=== PATIENT | male | born 1950 | race Caucasian/White ===

== ENCOUNTER → 2021-09-08 14:49 | Outpatient (BNVA) | payer MEDICARE, OTHER, SELFPAY | PROVIDERS: PCP Electrodiagnostic Medicine; Visit Provider Urology | DX: N52.9 Male erectile dysfunction, unspecified (principal); N52.1 Erectile dysfunction due to diseases classified elsewhere; R79.89 Other specified abnormal findings of blood chemistry | CPT/HCPCS: 81003 ==

== ENCOUNTER → 2021-10-13 07:18 | Outpatient (BNVA) | payer MEDICARE, OTHER, SELFPAY | PROVIDERS: PCP Electrodiagnostic Medicine; Visit Provider Urology | DX: R79.89 Other specified abnormal findings of blood chemistry (principal) | CPT/HCPCS: 84403 ==

== ENCOUNTER 2022-05-28 15:14 | Emergency (ER) | payer MEDICARE, SELFPAY ==
[2022-05-28 15:39] VITALS: BP 171/94; PULSE 70; RESP 14; TEMP 36.7; O2SAT 95; BMI 34.7
--- NOTE | 2022-05-28 16:56 | ED_ITS ---
HPI - General Adult General: Chief complaint: General Medical Stated complaint: Body aches, hemorrhoids Time Seen by Provider: 05/28/22 16:56 History of Present Illness: 71-year-old male patient comes in with a hemorrhoid. Patient reports that he has had rectal discomfort for last 3 days today he noticed some red blood and some increased discomfort. Patient denies diabetes. Patient appears nontoxic. Patient appears in mild to moderate pain. Associated symptoms: Deny chest pain or dyspnea Review of Systems Const: Denies: fever(s) Card: Denies: chest pain Resp: Denies: dyspnea GI: Reports: pain on defecation and rectal pain PFS ED PFSH: Medical History (Updated 05/28/22 @ 17:05 by ANA Brown) Erectile dysfunction Low testosterone in male Family History Mother No problems noted. Father Cancer lung Social History Smoking and tobacco status: never smoked Alcohol intake: never Marital status: Physical Exam Const: COMMON NORMALS: alert HENMT: COMMON NORMALS: normocephalic HEAD & SCALP: normocephalic Neck/C-Spine: COMMON NORMALS: full ROM Resp: COMMON NORMALS: normal respiratory effort Cardio: COMMON NORMALS: regular rate and regular rhythm RATE: regular rate RHYTHM: regular rhythm GI: COMMON NORMALS: Soft to palpation and non-tender PALPATION: Yes Soft to palpation RECTAL EXAM: Yes hemorrhoids (Large 12:00 hemorrhoid) : COMMON NORMALS: Yes no CVA tenderness BLADDER/KIDNEY EXAM: Yes no CVA tenderness Back/Pelvis: COMMON NORMALS: no CVA tenderness Extremity: COMMON NORMALS: normal to inspection Neuro: SENSORIUM/ORIENTATION: Yes alert Skin: COMMON NORMALS: turgor normal GENERAL SKIN EXAM: turgor normal Course Vital Signs: Vital signs: Vital Signs Temperature 98.1 F 05/28/22 15:39 Pulse Rate 70 05/28/22 15:39 Respiratory Rate 14 05/28/22 15:39 Blood Pressure 171/94 05/28/22 15:39 Pulse Oximetry 95 05/28/22 15:39 Oxygen Delivery Me thod 05/28/22 15:39 [facility] - General Adult Medical Decision Making 71-year-old male patient comes in today with complaints of rectal pain, red blood in stool, hemorrhoid. On exam we do note a hemorrhoid at the 12 o'clock position of the rectum. It is engorged but still fluctuant. It is tender to touch. No significant surrounding redness or induration. Differential diagnosis includes but not limited to rectal fistula, hemorrhoid, blood in stool. Patient appears nontoxic. We do note a hemorrhoid on exam. We will treat with medications for pain, stool softener, and Anusol for hemorrhoidal swelling. Case management was requested to have patient follow-up with surgeon for further evaluation and treatment of hemorrhoid. Patient was agreeable to plan and recommendations. Discharge Plan Discharge Patient Disposition: Home Clinical Impression: Hemorrhoid thrombosis Condition: Stable Prescriptions: New Anusol-HC 25 mg suppository 25 mg OR TID Qty: 24 0RF hydrocodone-acetaminophen 5-325 mg tablet 1 tab PO Q8H PRN (Reason: pain (scale score 7-10)) Qty: 10 0RF ciprofloxacin HCl 500 mg tablet 500 mg PO BID Qty: 14 0RF No Action valsartan-hydrochlorothiazide 160-12.5 mg tablet 1 tab PO DAILY levothyroxine 112 mcg capsule 112 mcg PO DAILY sildenafil 100 mg tablet 100 mg PO DAILY PRN (Reason: sexual activity) Qty: 20 12RF Rx Instructions: 1 hour before intercourse on empty stomach. NO NITROGLYCERIN! Discharge Orders: Discharge ED (Routine); Ordered 05/28/22 Ordered By: Krunal Helms Referrals: Rickey Burt, [Primary Care Provider] - Discharge Diet: Usual diet Discharge Activity: Increase activity as tolerated Patient Instructions: Hemorrhoids (ED) Activity Restrictions/Additional Instructions: Use a stool softener and avoid straining with defecation. Drink plenty of water. Use the suppositories 2-3 times a day until resolution of symptoms. Use hydrocodone for severe pain. Hydrocodone may cause constipation so make sure you take a stool softener with the use of hydrocodone. Take antibiotic 1 tablet twice a day for the next 7 days. Return to the ER for fever greater than 100.4, uncontrolled pain, or new concerns. Follow-up with primary care as needed. Case management will contact you regarding a follow-up appointment with the surgeon. Coding Level of Care Code ED Nuclear Control Room Operator for Dede Piedra
--- NOTE | 2022-05-31 13:34 | DCPLANNER ---
Addendum entered by Abbi Chacko 06/17/22 08:56: Patient had a follow up appointment scheduled with general surgery - patient did attend appointment. Addendum entered by Abbi Chacko 06/01/22 08:58: Patient has an appointment scheduled for May at 11:[address] Omer at General Surgery. Clinic will call patient with appointment information. Original Note: property disposal manager had message to schedule a follow up appointment for patient with general surgery. property disposal manager sent patients information to the front office staff at general surgery. Patients information will be printed and reviewed. Clinic will call patient with appointment information.
== END 2022-05-28 17:32 | disposition home or self-care (01) ==
PROVIDERS: Emergency Provider Nurse Practitioner Family; PCP Electrodiagnostic Medicine
DX: K64.5 Perianal venous thrombosis (principal)
CPT/HCPCS: 99284

== ENCOUNTER → 2022-06-02 11:11 | Outpatient (BNVA) | payer MEDICARE, SELFPAY | PROVIDERS: PCP Electrodiagnostic Medicine; Visit Provider Surgery | DX: K64.9 Unspecified hemorrhoids (principal) | CPT/HCPCS: 99203 ==

== ENCOUNTER → 2022-10-20 10:06 | Outpatient (BNVA) | payer MEDICARE, SELFPAY | PROVIDERS: PCP Electrodiagnostic Medicine; Visit Provider Podiatrist Foot & Ankle Surgery | DX: M77.8 Other enthesopathies, not elsewhere classified (principal); M77.52 Other enthesopathy of left foot and ankle; D36.13 Benign neoplasm of peripheral nerves and autonomic nervous system of lower limb, including hip; M79.672 Pain in left foot | CPT/HCPCS: 73630; 99204 ==

== ENCOUNTER → 2022-11-24 10:09 | Outpatient (BNVA) | payer MEDICARE, SELFPAY | PROVIDERS: PCP Electrodiagnostic Medicine; Visit Provider Podiatrist Foot & Ankle Surgery | DX: M77.8 Other enthesopathies, not elsewhere classified (principal); M77.52 Other enthesopathy of left foot and ankle; D36.13 Benign neoplasm of peripheral nerves and autonomic nervous system of lower limb, including hip | CPT/HCPCS: 99213 ==

== ENCOUNTER 2023-01-08 08:07 | Emergency (ER) | payer MEDICARE, SELFPAY ==
--- NOTE | 2023-01-08 08:16 | W.ED.NAVMDI ---
HPI - Nausea/Vomiting/Diarrhea General: Chief complaint: Abdominal Pain Stated complaint: diarrhea 5xdays Time Seen by Provider: 01/08/23 08:10 Source: patient Mode of arrival: ambulatory History of Present Illness: 72 yo male presents w compalitn of diuarrhea for the last 5 days. MD elicited complaint: nausea and diarrhea Onset (ago): day(s) (5) Description of vomiting: watery Associated nausea: No Associated abdominal pain: Yes Location of pain: Suprapubic Radiation: diffuse Pain consistency: constant Severity: mild Quality: cramping Exacerbating factors: none Relieving factors: none Associated symtoms: Denies altered mental status, anxiety, bloating, change in vision, chest pain, cough, diaphoresis, decreased urine output, dizziness, dysuria, epistaxis, fatigue, fecal incontinence, fevers/chills, headache(s), anorexia, malaise, myalgias, nausea, numbness, palpitations, rash, short of breath, syncope, tenesmus, tinnitus or weakness Review of Systems Const: Denies: fever(s), chills, fatigue, malaise or diaphoresis Eyes: Denies: change in vision ENMT: Denies: tinnitus or epistaxis Card: Denies: chest pain, palpitations or syncope Resp: Denies: dyspnea, productive cough or non-productive cough GI: Reports: abdominal pain and diarrhea; Denies: nausea, vomiting, bloating or fecal incontinence : Denies: dysuria Skin/Breast: Denies: rash or pruritus Neuro: Denies: headache(s) or dizziness Psych: Denies: anxiety PFSH ED PFSH: Medical History Erectile dysfunction Low testosterone in male Family History Mother No problems noted. Father Cancer lung Social History Smoking and tobacco status: never smoked Alcohol intake: never Marital status: Physical Exam Const: COMMON NORMALS: no acute distress EXAM LIMITATIONS: no altered mental status GENERAL APPEARANCE: cooperative and comfortable ORIENTATION/CONSCIOUSNESS: Yes awake, Yes oriented to person, Yes oriented to place and Yes oriented to time HENMT: COMMON NORMALS: normocephalic, atraumatic and hearing grossly normal bilaterally HEAD & SCALP: normocephalic and atraumatic Resp: COMMON NORMALS: normal respiratory effort, No retractions, No use of accessory muscles and clear to auscultation bilaterally AUSCULTATION: clear to auscultation bilaterally Cardio: COMMON NORMALS: regular rate, regular rhythm and No murmurs present (Cardio) RATE: regular rate RHYTHM: regular rhythm GI: COMMON NORMALS: No hepatosplenomegaly present AUSCULTATION: Yes normoactive bowel sounds PALPATION: Yes Tenderness to palpation present (GI) (suprapubic), No Guarding due to palpation present (GI) and Yes No hepatosplenomegaly present Extremity: COMMON NORMALS: normal to inspection, capillary refill normal, no clubbing, cyanosis or edema, no calf tenderness and no pedal edema Neuro: SENSORIUM/ORIENTATION: Yes oriented to person, Yes oriented to place and Yes oriented to time Skin: COMMON NORMALS: no rashes or lesions noted GENERAL SKIN EXAM: no rashes or lesions noted Course Vital Signs: Vital signs: Vital Signs Temperature 97.6 F 01/08/23 08:24 Pulse Rate 63 01/08/23 08:36 Respiratory Rate 19 H 01/08/23 08:36 Blood Pressure 98/75 01/08/23 10:16 Pulse Oximetry 93 01/08/23 08:36 Oxygen Delivery Me thod 01/08/23 08:36 MDM - Nausea/Vomiting/Diarrhea Medical Decision Making Labs reviewed. Based on physical exam suspect he has diverticulitis. His white count is normal we will start on oral antibiotics Cipro and Flagyl. No evidence of UTI no evidence of nephrolithiasis. Abdomen mildly tender but not acute or surgical. Discharge home on ciprofloxacin and metronidazole liquid diet for the next 2 to 3 days and advance as tolerated follow-up primary care return to the ER if worsens or does not improve Medical Records I reviewed the patient's medical records. Lab Data I reviewed the patient's lab results. 01/08/23 08:35 01/08/23 08:35 Laboratory Results WBC 9.9 10^3/uL (4.0-10.0) 01/08/23 08:35 RBC 5.54 10^6/uL (4.1-5.3) H 01/08/23 08:35 Hgb 15.4 g/dL (11.7-16.6) 01/08/23 08:35 Hct 46.6 % (42.0-52.0) 01/08/23 08:35 MCV 84.1 fl (80-94) 01/08/23 08:35 MCH 27.8 pg (28.0-34.0) L 01/08/23 08:35 MCHC 33.0 g/dL (30.0-36.0) 01/08/23 08:35 RDW 12.7 % (12.1-15.1) 01/08/23 08:35 Plt Count 271 10^3/cmm (130-400) 01/08/23 08:35 MPV 8.1 fL (7.4-10.4) 01/08/23 08:35 Neut % (Auto) 49.0 % 01/08/23 08:35 Lymph % (Auto) 35.3 % 01/08/23 08:35 [place] % (Auto) 9.8 % 01/08/23 08:35 Eos % (Auto) 5.2 % 01/08/23 08:35 Baso % (Auto) 0.4 % 01/08/23 08:35 Neut # (Auto) 4.86 10^3/uL (1.8-7.7) 01/08/23 08:35 Lymph # (Auto) 3.5 10^3/uL (0.8-4.8) 01/08/23 08:35 [place] # (Auto) 1.0 10^3/uL (0.2-0.9) H 01/08/23 08:35 Eos # (Auto) 0.5 10^3/uL (0.0-0.8) 01/08/23 08:35 Baso # (Auto) 0.0 10^3/uL (0.0-0.1) 01/08/23 08:35 Nucleated RBC % (auto) 0 % 01/08/23 08:35 Nucleated RBCs # 0.0 /100WBC 01/08/23 08:35 Sodium 132 mmol/L (136-145) L 01/08/23 08:35 Potassium 3.5 mmol/L (3.5-5.1) 01/08/23 08:35 Chloride 95 mmol/L (98-107) L 01/08/23 08:35 Carbon Dioxide 25 mmol/L (22-29) 01/08/23 08:35 Anion Gap 15.5 (5-19) 01/08/23 08:35 BUN 22 mg/dL (8-23) 01/08/23 08:35 Creatinine 0.9 mg/dL (0.7-1.2) 01/08/23 08:35 GFR Calculation Not Reportable 01/08/23 08:35 Glucose 120 mg/dL (65-115) H 01/08/23 08:35 Calculated Osmolality 279 mOsm/kg (285-295) L 01/08/23 08:35 Calcium 8.8 mg/dL (8.5-10.5) 01/08/23 08:35 Total Bilirubin 0.9 mg/dL (0.15-1.2) 01/08/23 08:35 AST 21 U/L (0-40) 01/08/23 08:35 ALT 36 U/L (0-41) 01/08/23 08:35 Alkaline Phosphatase 82 U/L (40-130) 01/08/23 08:35 Total Protein 7.3 g/dL (6.6-8.7) 01/08/23 08:35 Albumin 3.9 g/dL (3.5-5.2) 01/08/23 08:35 Globulin 3.4 g/dL (1.3-4.6) 01/08/23 08:35 Lipase 16 U/L (13-60) 01/08/23 08:35 Urine Color Yellow (Yellow) 01/08/23 10:00 Urine Appearance Clear (CLEAR) 01/08/23 10:00 Urine pH 6 (5-7) 01/08/23 10:00 Ur Specific [place] 1.020 (1.005-1.030) 01/08/23 10:00 Urine Protein Neg (Negative) 01/08/23 10:00 Urine Glucose (UA) Norm (Normal) 01/08/23 10:00 Urine Ketones Negative (Negative) 01/08/23 10:00 Urine Blood Neg (Negative) 01/08/23 10:00 Urine Nitrate Negative (Negative) 01/08/23 10:00 Urine Bilirubin Neg (Negative) 01/08/23 10:00 Urine Urobilinogen Norm mg/dL (Negative) 01/08/23 10:00 Ur Leukocyte Esterase Negative (Negative) 01/08/23 10:00 Discharge Plan Discharge Patient Disposition: Home Clinical Impression: Diverticulitis Condition: Stable Prescriptions: New Cipro 500 mg tablet 500 mg PO BID Qty: 14 0RF metronidazole 500 mg tablet 500 mg PO BID 7 Days Qty: 14 0RF promethazine 25 mg tablet 25 mg PO Q6H PRN (Reason: nausea and vomiting) Qty: 20 0RF Discontinued methylprednisolone [Medrol (Arnold)] 4 mg tablets,dose pack See Rx Instructions PO PER PKG DIR Qty: 21 0RF Rx Instructions: PO PER PKG DIR hydrocodone-acetaminophen 5-325 mg tablet 1 tab PO Q8H PRN (Reason: pain (scale score 7-10)) Qty: 10 0RF ciprofloxacin HCl 500 mg tablet 500 mg PO BID Qty: 14 0RF No Action valsartan-hydrochlorothiazide 160-12.5 mg tablet 1 tab PO DAILY levothyroxine 112 mcg capsule 112 mcg PO DAILY sildenafil 100 mg tablet 100 mg PO DAILY PRN (Reason: sexual activity) Qty: 20 12RF Rx Instructions: 1 hour before intercourse on empty stomach. NO NITROGLYCERIN! Anusol-HC 25 mg suppository 25 mg AK TID Qty: 24 0RF Discharge Orders: Discharge ED (Routine); Ordered 01/08/23 Ordered By: David Munson Referrals: Rickey Burt DO [Primary Care Provider] - Discharge Diet: Full LIquid Discharge Activity: Increase activity as tolerated Patient Instructions: Diverticulitis (ED), Diverticulitis Diet (ED), Opioid Safety, Pain Management Activity Restrictions/Additional Instructions: You are seen today for abdominal pain. Your white count is normal your exam and history are indicative of diverticulitis. We will start you on antibiotics for diverticulitis. Liquid diet for the next 3 days. If you have any worsening symptoms or blood return to the emergency room. Coding Level of Care Code ED Bottom Pounder Cement Shoes for Dede Piedra
[2023-01-08 08:24] VITALS: BP 101/68; PULSE 72; RESP 14; TEMP 36.4; O2SAT 96; BMI 34.7
[2023-01-08 08:36] VITALS: BP 109/68; PULSE 63; RESP 19; O2SAT 93
[2023-01-08] MEDS: sodium chloride 0.9% 1,000 ML 999 ML IV (08:37)
[2023-01-08 08:46] LABS: Basophils % 0.4 %; Eosinophils # 0.5 10^3/uL (0.0-0.8); Eosinophils % 5.2 %; Hematocrit 46.6 % (42.0-52.0); Hemoglobin 15.4 g/dL (11.7-16.6); Lymphocytes # 3.5 10^3/uL (0.8-4.8); Lymphocytes % 35.3 %; Mean Corpuscular Hemoglobin 27.8 pg (28.0-34.0); Mean Corpuscular Volume 84.1 fl (80-94); Mean Platelet Volume 8.1 fL (7.4-10.4); Monocytes % 9.8 %; Neutrophils # 4.86 10^3/uL (1.8-7.7); Nucleated Red Blood Cells % 0 %; Platelet Count 271 10^3/cmm (130-400); Red Blood Count 5.54 10^6/uL (4.1-5.3); Red Cell Distribution Width 12.7 % (12.1-15.1); White Blood Count 9.9 10^3/uL (4.0-10.0)
[2023-01-08 09:01] LABS: Alanine Aminotransferase 36 U/L (0-41); Albumin Level 3.9 g/dL (3.5-5.2); Alkaline Phosphatase 82 U/L (40-130); Anion Gap 15.5 (5-19); Aspartate Amino Transferase 21 U/L (0-40); Blood Urea Nitrogen 22 mg/dL (8-23); Calcium 8.8 mg/dL (8.5-10.5); Carbon Dioxide 25 mmol/L (22-29); Chloride 95 mmol/L (98-107); Globulin 3.4 g/dL (1.3-4.6); Glucose 120 mg/dL (65-115); Lipase 16 U/L (13-60); Osmolality Calculated 279 mOsm/kg (285-295); Potassium 3.5 mmol/L (3.5-5.1); Sodium 132 mmol/L (136-145); Total Bilirubin 0.9 mg/dL (0.15-1.2); Total Protein 7.3 g/dL (6.6-8.7)
[2023-01-08 10:16] VITALS: BP 98/75
[2023-01-08 10:23] LABS: Add Urine Microscopic? NO; Charge for UA Resulting for Rev
[2023-01-08 10:42] LABS: Bilirubin Urine Neg (Negative); Blood Urine Neg (Negative); Glucose Urine UA Norm (Normal); Ketones Urine Negative (Negative); Leukocyte Esterase Urine Negative (Negative); Nitrate Urine Negative (Negative); Protein Urine Neg (Negative); Urine Appearance Clear (CLEAR); Urine Color Yellow (Yellow); Urobilinogen Urine Norm (Negative); pH Urine 6 (5-7)
== END 2023-01-08 11:15 | disposition home or self-care (01) ==
PROVIDERS: Emergency Provider Family Medicine; PCP Electrodiagnostic Medicine
DX: K57.92 Diverticulitis of intestine, part unspecified, without perforation or abscess without bleeding (principal)
CPT/HCPCS: 80053; 81003; 83690; 85025; 99284; J7030

== ENCOUNTER → 2023-04-28 15:58 | Outpatient (BNVA) | payer MEDICARE, SELFPAY | PROVIDERS: PCP Electrodiagnostic Medicine; Visit Provider Internal Medicine Pulmonary Disease | DX: R07.9 Chest pain, unspecified (principal) | CPT/HCPCS: 71046; 99204 ==

== ENCOUNTER 2023-05-12 13:07 | Outpatient (CLI) | payer MEDICARE, SELFPAY ==
--- NOTE | 2023-05-12 13:30 | CT_ITS ---
WS: [id number] CT chest wo con [id number] HISTORY: dyspnea TECHNIQUE: Axial imaging performed through the thorax. Coronal and sagittal reformats are submitted. All CT scans at [facility] use at least one of these dose optimization techniques: automated exposure control; mA and/or kV adjustment per patient size (includes targeted exams where dose is mat ched to clinical indication); or iterative reconstruction. CONTRAST: None DLP: 470.75 mGy.cm COMPARISON: Chest radiograph 04/28/2023 Lungs and central airway: Normal. Pleura: Normal. No pleural effusion. Heart and pericardium: Normal size heart. No pericardial effusion. Mild coronary atherosclerosis. Mediastinum and bailey: No adenopathy. Vessels: Very minimal atherosclerosis aorta. Normal size pulmonary artery and aorta. Mild scattered c oronary artery calcifications. Chest wall and lower neck: No soft tissue masses. Upper abdomen: Normal size liver. Cholelithiasis without acute cholecystitis. Bilateral renal low-att enuation masses are incompletely visualized. The largest involving the right kidney measures 6.0 x 6. 6 cm. Hounsfield units are low within the visualized kidneys suggesting cystic disease. Osseous structures: Negative. IMPRESSION: 1. No pulmonary mass or pneumonia. 2. Mild atherosclerosis coronary arteries and thoracic aorta. 3. Cholelithiasis without acute cholecystitis.
== END 2023-05-12 13:08 | disposition home or self-care (01) ==
PROVIDERS: PCP Electrodiagnostic Medicine; Visit Provider Internal Medicine Pulmonary Disease
DX: R06.00 Dyspnea, unspecified (principal); I25.10 Atherosclerotic heart disease of native coronary artery without angina pectoris; I70.0 Atherosclerosis of aorta; K80.20 Calculus of gallbladder without cholecystitis without obstruction
CPT/HCPCS: 71250

== ENCOUNTER 2023-05-19 13:15 | Outpatient (CLI) | payer MEDICARE, SELFPAY ==
[2023-05-19 13:32] VITALS: PULSE 65; RESP 18; O2SAT 94
[2023-05-19] MEDS: albuterol 2.5 mg/3 mL Neb INHALATION (13:32)
[2023-05-19 13:37] VITALS: PULSE 70
== END 2023-05-19 13:16 | disposition home or self-care (01) ==
LOC: RT 13:15
PROVIDERS: PCP Electrodiagnostic Medicine; Visit Provider Internal Medicine Pulmonary Disease
DX: R06.09 Other forms of dyspnea (principal)
CPT/HCPCS: 94060; 94618; 94726; 94729

== ENCOUNTER → 2023-06-29 15:00 | Outpatient (BNVA) | payer MEDICARE, SELFPAY | PROVIDERS: PCP Electrodiagnostic Medicine; Visit Provider Internal Medicine Pulmonary Disease | DX: J82.83 Eosinophilic asthma (principal); N28.1 Cyst of kidney, acquired; K80.20 Calculus of gallbladder without cholecystitis without obstruction; Z57.5 Occupational exposure to toxic agents in other industries | CPT/HCPCS: 99214 ==

== ENCOUNTER 2023-07-29 08:45 | Outpatient (CLI) | payer MEDICARE, SELFPAY ==
--- NOTE | 2023-07-29 | ECG_ITS ---
[facility] Test Date: 2023-07-29 Pat Name: Malachi Larry Department: Room: Gender: Male Owner/Operator: : 1950 Requested By: Rickey Jarquin Order Number: [id number] Robertson MD: Isela Ro M.D. Interpretive Statements NAME OF STUDY: EXERCISE SESTAMIBI STRESS TEST INDICATION: ASHD Baseline blood pressure of 120/76 mm Hg, heart rate 54 beats per minute. EKG showed sinus rhythm, possible old inferior CO. Incomplete RBBB. Poor anterior R wave progression. ??? The patient exercised for 7 min 30 seconds on a [standard Lenard protocol]. Patient attained a maximum heart rate of 131 beats per minute( 88 % of the maximum predicted heart rate) with a blood pressure at the peak exercise of 180/87 mm Hg. The EKG at the peak exercise revealed no significant ST-T wave changes. Patient did [not have any chest pain or any significant arrhythmis with the exercise]??? During the recovery phase, there were no new changes. ??? Blood pressure at the end of the recovery phase was 170/89 mm Hg with a heart rate of 77 beats per minute. ??? CONCLUSION: 1. Normal EKG response to treadmill exercise. 2. No exercise-induced chest pain or cardiac arrhythmia. 3. Good exercise tolerance, attained a maximum of 10.2 METs. 4. Baseline normal blood pressure with normal response to exercise. 5. Perfusion scan will be documented separately. Electronically Signed On 08-08-2023 19:14:28 EDITOR HOUSE ORGAN by Isela Ro M.D. [id number]
[2023-07-29 09:31] VITALS: BMI 33.7
--- NOTE | 2023-07-29 09:31 | NMCV_ITS ---
NM herrera perf SPECT r/s* [id number] Malachi Larry Age: 73 Gender: M : 1950 Exam Date: 07/29/2023 09:54 Ordering Phys: Rickey Burt DO Technologist: FIFI Booth Exam Location: [facility] [address] Indications: ATHEROSCLEROTIC HEART DISEASE STRESS TEST Please see separate stress test report in Ephiphany for full findings IMAGE PROTOCOL Rest/Stress 1 Exercise Day Radiopharmaceutical Dose (mCi) Administration Site Administered by Rest: Tc-99m 10.9 IV FIFI Booth Sestamibi Stress:Tc-99m 32.6 IV FIFI Lee Sestamibi Rest: 29-Jul-2023 60 Discovery 630 Stress: 29-Jul-2023 15 Discovery 630 Radiopharmaceutical was injected at 86 % maximum heart rate. Images obtained in supine and prone position. SPECT RESULTS Technical Quality: Excellent Raw Data Analysis: Normal Image Corrections: No attenuation or motion correction applied Summed Stress Score: 10 Summed Rest Score: 5 Summed Difference Score: 5 PERFUSION FINDINGS Small sized perfusion abnormality of mid to apical inferior and mid infero- septal barry with reversibility noted in apical inferior, apical septal and apical barry on supine stress images. On prone images, there is improved tracer uptake in basal to mid inferior barry. FUNCTIONAL RESULTS (calculated via Gated SPECT) Stress Image LV EF (%): 69 Stress EDV (mL):123 TID: 0.9 Stress ESV (mL):38 FUNCTIONAL FINDINGS: The left ventricle is normal in size. Transient Ischemia Dilatation of 0.9. The left ventricular ejection fraction is normal with a value of 69%. There is normal left ventricular wall thickening. IMPRESSIONS 1. Small sized perfusion abnormality of mid to apical inferior and mid infero- septal barry with reversibility noted in apical inferior, apical septal and apical barry. 2. This may represent old myocardial infarction in right coronary artery with minimal jurgen-infarct ischemia.Attenuation artifact cannot be ruled out, given improved tracer uptake in prone images. 3. Overall left ventricular systolic function is normal without regional wall motion abnormalities,LVEF=69%. 4. EKG portion of the study will be reported separately. Isela Ro MD (Electronically Signed) Final Date: 31 July 2023 11:48 S
[2023-07-29 10:51] VITALS: BP 170/89; PULSE 87
== END 2023-07-29 08:46 | disposition home or self-care (01) ==
PROVIDERS: PCP Electrodiagnostic Medicine; Visit Provider Electrodiagnostic Medicine
DX: I25.10 Atherosclerotic heart disease of native coronary artery without angina pectoris (principal); R94.39 Abnormal result of other cardiovascular function study
CPT/HCPCS: 36415; 78452; 93017; 96374; A9500

== ENCOUNTER → 2023-09-08 11:12 | Outpatient (BNVA) | payer MEDICARE, SELFPAY | PROVIDERS: PCP Electrodiagnostic Medicine; Referring Provider Electrodiagnostic Medicine; Visit Provider Internal Medicine Cardiovascular Disease | DX: R94.39 Abnormal result of other cardiovascular function study (principal); I10 Essential (primary) hypertension; E78.5 Hyperlipidemia, unspecified; E03.8 Other specified hypothyroidism | CPT/HCPCS: 99204 ==

== ENCOUNTER 2023-09-23 15:04 | Outpatient (CLI) | payer MEDICARE, SELFPAY ==
--- NOTE | 2023-09-23 15:15 | USCV_ITS ---
Malachi Larry Age: 73 Gender: M : 1950 Exam Date: 09/23/2023 15:25 Ordering Phys: Larry Crowley MD ([email or web address]) Technologist: CT Exam Location: [facility] Indication: cva BP: 136 / 78 HR: 60 Rhythm: Sinus Technical Quality: Adequate MEASUREMENTS (Male / Female) Normal Values 2D ECHO LVOT Diameter 2.1 cm LV Ejection Fraction MOD 2C 51.7 % LV Ejection Fraction 2C AL 52.4 % LA Diameter 5.1 cm Aorta at Sinotubular Diameter 2.6 cm IVC Diameter 1.8 cm M-MODE Aortic Annulus Diameter 3.6 cm LA Ao Ratio MM 1.5 MV E Point Septal Separation 0.8 cm DOPPLER AV Peak Velocity 147.0 cm/s LVOT Peak Velocity 102.0 cm/s AV Area Cont Eq vti 2.7 cm squared AV Area Cont Eq pk 2.4 cm squared MV E' Velocity 8.0 cm/s TR Peak Velocity 247.5 cm/s TR Peak Gradient 24.5 mmHg TV Peak E Velocity 79.0 cm/s Right Atrial Pressure 3.0 mmHg Pulmonary Artery Systolic Pressu 27.5 mmHg PV Peak Velocity 113.0 cm/s FINDINGS Left Ventricle Normal left ventricular size and systolic function, EF 55 % (visual). No regional wall motion abnormalities. Technically difficult study because of the poor ultrasonic window Right Ventricle The right ventricle is normal in size and function. Right Atrium The right atrium is normal in size. Left Atrium Mildly increased left atrial size. Mitral Valve No gross abnormalities noted Aortic Valve No gross abnormalities noted . Tricuspid Valve Mild tricuspid valve regurgitation. Pulmonic Valve Pulmonic valve not well visualized. Pericardium Normal pericardium without effusion. Aorta Normal ascending aorta dimension. IVC Normal inferior vena cava. CONCLUSIONS Normal left ventricular size and systolic function, EF 55 % (visual). No regional wall motion abnormalities. Technically difficult study because of the poor ultrasonic window. Mildly increased left atrial size. Mild tricuspid valve regurgitation. There is no pericardial effusion. There are no intracardiac masses. No similar previous studies are available for comparison Dr Larry Crowley MD [facility] (Electronically Signed) Final Date: 25 September 2023 23:48 S
== END 2023-09-23 15:05 | disposition home or self-care (01) ==
LOC: RAD 15:04
PROVIDERS: PCP Electrodiagnostic Medicine; Visit Provider Internal Medicine Cardiovascular Disease
DX: I07.1 Rheumatic tricuspid insufficiency (principal); R06.09 Other forms of dyspnea
CPT/HCPCS: 93306

== ENCOUNTER 2023-10-05 11:59 | Inpatient (IN) | payer MEDICARE, SELFPAY ==
[2023-10-05] VITALS (19 sets, daily range): BP systolic 119–173; BP diastolic 82–110; PULSE 55–67; RESP 12–21; TEMP 36.2–36.8; O2SAT 93–98; BMI 34.0; BMI 32.3
--- NOTE | 2023-10-05 12:06 | ECG_ITS ---
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 Measurements Intervals [place] Rate: 63 P: 59 AR: 153 QRS: -80 QRSD: 126 T: 113 QT: 391 QTc: 401 Interpretive Statements SINUS RHYTHM RIGHT BUNDLE BRANCH BLOCK [120+ ms QRS DURATION, UPRIGHT V1, 40+ ms S IN I/aVL/V4/V5/V6] LEFT ANTERIOR FASCICULAR BLOCK [QRS AXIS <= -45, QR IN I, RS IN II] MODERATE T-WAVE ABNORMALITY, CONSIDER LATERAL ISCHEMIA [-0.1+ mV T-WAVE IN I/aVL/V5/V6] No previous ECG available for comparison Electronically Signed On 10-05-2023 12:49:46 BIOLOGICAL TECHNICAL OFFICER by Rocael Hall M.D. [id number]
--- NOTE | 2023-10-05 14:11 | ECG_ITS ---
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 Measurements Intervals [place] Rate: 67 P: 82 SD: 154 QRS: -74 QRSD: 120 T: 125 QT: 436 QTc: 461 Interpretive Statements SINUS RHYTHM WITH OCCASIONAL VENTRICULAR PREMATURE COMPLEXES WITH OCCASIONAL SUPRAVENTRICULAR PREMATURE COMPLEXES LEFT ANTERIOR FASCICULAR BLOCK [QRS AXIS <= -45, QR IN I, RS IN II] ST DEVIATION AND MODERATE T-WAVE ABNORMALITY, CONSIDER ANTEROLATERAL ISCHEMIA [-0.1+ mV T-WAVE IN V3-V6] Compared to ECG 10/05/2023 12:06:35 Ventricular premature complex(es) now present Right bundle-branch block no longer present T-wave abnormality still present Possible ischemia still present Electronically Signed On 10-05-2023 19:01:12 NEUROLOGICAL SURGEON by Rocael Hall M.D. [id number]
--- NOTE | 2023-10-05 14:11 | XR_ITS ---
WS: [id number] Portable AP upright chest, 10/05/2023 Clinical Data: chest pain Comparison: Two-view chest, 04/28/2023 Findings: No nodules, masses or effusions are seen. The heart is normal. The pulmonary vascularity is not increased. No pneumonia or pneumothorax is seen. The aortic arch and descending thoracic aorta s how minimal tortuosity. Impression: Atherosclerosis.
[2023-10-05 14:55] LABS: Basophils % 0.4 %; Eosinophils # 0.2 10^3/uL (0.0-0.8); Eosinophils % 1.8 %; Hematocrit 49.3 % (37-53); Lymphocytes # 2.4 10^3/uL (0.8-4.8); Lymphocytes % 25.7 %; Mean Corpuscular HGB Conc 33.1 g/dL (30-55); Mean Corpuscular Hemoglobin 28.2 pg (27-33); Mean Corpuscular Volume 85.4 fl (82-101); Mean Platelet Volume 8.2 fL (7.4-10.4); Monocytes # 0.8 10^3/uL (0.2-0.9); Monocytes % 8.2 %; Neutrophils # 5.94 10^3/uL (1.8-7.7); Neutrophils % 63.5 %; Nucleated Red Blood Cells % 0 %; Platelet Count 275 10^3/cmm (157-399); Red Blood Count 5.77 10^6/uL (3.85-5.65); Red Cell Distribution Width 13.2 % (12.1-15.1); White Blood Count 9.37 10^3/uL (3.29-11.43)
--- NOTE | 2023-10-05 15:09 | W.ED.CHESTPA ---
HPI - Chest Pain General: Chief Complaint: Chest Pain Stated Complaint: CP, sob Time Seen by Provider: 10/05/23 15:00 History of Present Illness: 73-year-old man with a history of hypertension and hyperlipidemia who presents to the emergency room with chest pain. Pain started about 4 hours ago and was improving. He says it is now starting to come back. He describes a pressure in his central chest. He had pain radiating into his jaw on both sides in his neck on both sides. He has occasional cough. No shortness of breath. No nausea or vomiting. No abdominal pain. No lower extremity swelling. Review of Systems Narrative: Constitutional symptoms: Negative except as documented in HPI. Skin symptoms: Negative except as documented in HPI. Eye symptoms: Negative except as documented in HPI. ENMT symptoms: Negative except as documented in HPI. Respiratory symptoms: Negative except as documented in HPI. Cardiovascular symptoms: Negative except as documented in HPI. Gastrointestinal symptoms: Negative except as documented in HPI. Genitourinary symptoms: Negative except as documented in HPI. Musculoskeletal symptoms: Negative except as documented in HPI. Neurologic symptoms: Negative except as documented in HPI. Psychiatric symptoms: Negative except as documented in HPI. Endocrine symptoms: Negative except as documented in HPI. PFSH ED PFSH: Medical History HTN (hypertension) Hypothyroidism Inguinal hernia History of colon polyps Erectile dysfunction Low testosterone in male Surgical History H/O elbow surgery Hx of arthroscopy of left knee H/O discectomy History of colonoscopy with polypectomy Family History Mother No problems noted. Father Cancer lung Social History Smoking and tobacco/nicotine status: never used tobacco/nicotine Alcohol intake: never Marital status: Physical Exam Narrative: EXAM NARRATIVE: General: Alert, no acute distress. Skin: Warm, dry. Head: Normocephalic, atraumatic. Neck: Supple, trachea midline. Eye: Extraocular movements are intact. Ears, nose, mouth and throat: mucosa moist. Cardiovascular: Regular, Normal peripheral perfusion. Respiratory: Lungs are clear to auscultation, respirations are non-labored, breath sounds are equal, Symmetrical chest wall expansion. Gastrointestinal: Soft, Nontender, Non distended, Normal bowel sounds. Musculoskeletal: Normal ROM, no deformity. Neurological: Alert and oriented to person, place, time, and situation, No focal neurological deficit observed. Psychiatric: Cooperative, appropriate mood & affect. Course Vital Signs: Vital signs: Vital Signs Temperature 98.2 F 10/05/23 12:04 Pulse Rate 62 10/05/23 16:00 Respiratory Rate 12 10/05/23 16:00 Blood Pressure 128/82 10/05/23 16:00 Pulse Oximetry 96 10/05/23 16:00 Oxygen Delivery Me thod Room Air 10/05/23 16:00 MDM - Chest Pain Medical Decision Making Concern for acute coronary syndrome. Pneumonia. Heart failure. Noncardiac chest pain. EKG, troponin serially. CBC. BMP. Chest x-ray were ordered. Lab Data 10/05/23 14:25 10/05/23 14:25 Laboratory Results WBC 9.37 10^3/uL (3.29-11.43) 10/05/23 14:25 RBC 5.77 10^6/uL (3.85-5.65) H 10/05/23 14:25 Hgb 16.30 g/dL (11.27-16.99) 10/05/23 14:25 Hct 49.3 % (37-53) 10/05/23 14:25 MCV 85.4 fl (82-101) 10/05/23 14:25 MCH 28.2 pg (27-33) 10/05/23 14:25 MCHC 33.1 g/dL (30-55) 10/05/23 14:25 RDW 13.2 % (12.1-15.1) 10/05/23 14:25 Plt Count 275 10^3/cmm (157-399) 10/05/23 14:25 MPV 8.2 fL (7.4-10.4) 10/05/23 14:25 Neut % (Auto) 63.5 % 10/05/23 14:25 Lymph % (Auto) 25.7 % 10/05/23 14:25 [place] % (Auto) 8.2 % 10/05/23 14:25 Eos % (Auto) 1.8 % 10/05/23 14:25 Baso % (Auto) 0.4 % 10/05/23 14:25 Neut # (Auto) 5.94 10^3/uL (1.8-7.7) 10/05/23 14:25 Lymph # (Auto) 2.4 10^3/uL (0.8-4.8) 10/05/23 14:25 [place] # (Auto) 0.8 10^3/uL (0.2-0.9) 10/05/23 14:25 Eos # (Auto) 0.2 10^3/uL (0.0-0.8) 10/05/23 14:25 Baso # (Auto) 0.0 10^3/uL (0.0-0.1) 10/05/23 14:25 Nucleated RBC % (auto) 0 % 10/05/23 14: Nucleated RBCs # 0.0 /100WBC 10/05/23 14:25 PT 12.90 SECONDS (12.1-14.9) 10/05/23 14:25 INR 0.94 (0.8-1.2) 10/05/23 14:25 APTT 28.2 SECONDS (23.9-36.7) 10/05/23 14:25 Sodium 140 mmol/L (136-145) 10/05/23 14:25 Potassium 4.3 mmol/L (3.5-5.1) 10/05/23 14:25 Chloride 101 mmol/L (98-107) 10/05/23 14:25 Carbon Dioxide 30 mmol/L (22-29) H 10/05/23 14:25 Anion Gap 13.3 (5-19) 10/05/23 14:25 BUN 15 mg/dL (8-23) 10/05/23 14:25 Creatinine 0.7 mg/dL (0.7-1.2) 10/05/23 14:25 GFR Calculation Not Reportable 10/05/23 14:25 Glucose 98 mg/dL (65-115) 10/05/23 14:25 Calculated Osmolality 291 mOsm/kg (285-295) 10/05/23 14:25 Calcium 10.2 mg/dL (8.5-10.5) 10/05/23 14:25 Magnesium 2.3 mg/dL (1.7-2.3) 10/05/23 14:25 Total Bilirubin 0.5 mg/dL (0.15-1.2) 10/05/23 14:25 AST 50 U/L (0-40) H 10/05/23 14:25 ALT 61 U/L (0-41) H 10/05/23 14:25 Alkaline Phosphatase 113 U/L (40-130) 10/05/23 14:25 Troponin T Baseline 157 ng/L (0-15) H* 10/05/23 14:25 NT-Pro-B Natriuret Pep 549 pg/mL (0-125) H 10/05/23 14:25 Total Protein 7.9 g/dL (6.6-8.7) 10/05/23 14:25 Albumin 4.8 g/dL (3.5-5.2) 10/05/23 14:25 Globulin 3.1 g/dL (1.3-4.6) 10/05/23 14:25 Patient's initial troponin was slightly elevated. He is continue to have some chest discomfort. Has had serial EKG changes. Evaluated by cardiology and he is going to the Social Psychologist. XR interpretation done by ED provider, pending radiology final review ED provider radiology interpretation(s): Chest x-ray: No acute process. No pneumothorax. No infiltrate. No cardiomegaly. This was reviewed and interpreted by myself the ER physician. EKG Data EKG 1: Other EKG comments: EKG: Time 1512 rate 67 normal sinus rhythm, there are some ST changes, possibly some slight elevation in V2 and V3 that were not present on previous EKG. The only EKG I could review was from a stress test about a year ago, no ectopy, normal [place] & QRS intervals, This was reviewed and interpreted by myself the ER physician. Repeat EKG time 1628 rate 63. Does have some serial changes. Appears to have T wave inversions more present in the anterolateral leads. Still not a definitive STEMI. I discussed the EKG findings in person with utility worker film processing on-call. He is seeing the patient here in the emergency room. Other Data -I discussed the patient with the utility worker film processing on-call who is taking the patient to the Social Psychologist. -324 chewable aspirin. 600 oral Plavix. 4000 unit heparin bolus per cardiology. - Discussed findings and plan with patient. Answered any questions. - All laboratory values were reviewed and interpreted personally by myself, the ER physician - All imaging was reviewed and interpreted personally by myself, the ER physician. - Evaluation and treatment of this problem were appropriate in the emergency setting Discharge Plan Discharge Patient Disposition: Admitted As Inpatient Clinical Impression: Non-ST elevated myocardial infarction (non-STEMI) Condition: Stable Coding Level of Care Code ED Sharepoint Designer Developer for Dede Piedra
--- NOTE | 2023-10-05 15:13 | PC.NURSE ---
pt placed on bedside cardiac monitoring.
[2023-10-05 15:14] LABS: INR 0.94 (0.8-1.2); Partial Thromboplastin Time 28.2 SECONDS (23.9-36.7)
[2023-10-05 15:26] LABS: Alanine Aminotransferase 61 U/L (0-41); Albumin Level 4.8 g/dL (3.5-5.2); Alkaline Phosphatase 113 U/L (40-130); Anion Gap 13.3 (5-19); Aspartate Amino Transferase 50 U/L (0-40); Blood Urea Nitrogen 15 mg/dL (8-23); Calcium 10.2 mg/dL (8.5-10.5); Carbon Dioxide 30 mmol/L (22-29); Chloride 101 mmol/L (98-107); Globulin 3.1 g/dL (1.3-4.6); Glucose 98 mg/dL (65-115); Magnesium 2.3 mg/dL (1.7-2.3); NT Pro B Type Natriuretic Pept 549 pg/mL (0-125); Osmolality Calculated 291 mOsm/kg (285-295); Potassium 4.3 mmol/L (3.5-5.1); Sodium 140 mmol/L (136-145); Total Bilirubin 0.5 mg/dL (0.15-1.2); Total Protein 7.9 g/dL (6.6-8.7)
[2023-10-05 15:32] LABS: Troponin(5th) Baseline 157 ng/L (0-15)
--- NOTE | 2023-10-05 16:28 | ECG_ITS ---
[facility] Test Date: 2023-10-05 Pat Name: Malachi Larry Department: Room: Gender: Male Cultural Historian: : 1950 Requested By: Krunal Jarquin Order Number: [id number] Ailyn MD: Rocael Hall M.D. Measurements Intervals [place] Rate: 63 P: 50 NM: 133 QRS: -74 QRSD: 118 T: 132 QT: 447 QTc: 458 Interpretive Statements SINUS RHYTHM LEFT ANTERIOR FASCICULAR BLOCK [QRS AXIS <= -45, QR IN I, RS IN II] ST DEVIATION AND MODERATE T-WAVE ABNORMALITY, CONSIDER ANTEROLATERAL ISCHEMIA [-0.1+ mV T-WAVE IN V3-V6] Compared to ECG 10/05/2023 15:12:54 Ventricular premature complex(es) no longer present T-wave abnormality still present Possible ischemia still present Electronically Signed On 10-05-2023 19:02:14 CRYSTAL SYRUP MAKER by Rocael Hall M.D. [id number]
--- NOTE | 2023-10-05 16:50 | XACV_ITS ---
Exam Room: [facility] Ht: 175 cm Wt: 102 kg BSA: 2.26 m2 Gender: Male : 1950 Any Known Allergies: No known allergies Exam Priority: Routine Indication(s): - Non-ST elevation ID Procedure(s): Procedure Description: Diagnostic procedure Procedure Description: PCI procedure Procedure Description: Coronary IVUS Procedure Description: Drug Eluting Coronary Stent Procedure Description: Miscellaneous Procedure Description: ACT Procedure Description: Coronary Angiography Diagnostic Cath Status: Urgent Diagnostic Findings * INDICATION: 73 year old male with past medical history of dyslipidemia, hypothyroidism, hypertension who presented to hospital with 2 to 3 weeks of on and off chest pain. Initially was exertional. Since yesterday it has become quite significant. It was radiating to the jaw and to the back of the neck. Today it became severe and he presented to the hospital. His EKG is showing dynamic changes. Deep T wave inversions in anterior and anterolateral leads. His initial troponin is 157. Given EKG changes, we decided to bring him to laborer vegetable farm urgently. * Left Main has no significant disease. * Circumflex has mild luminal irregularities. * Proximal Left Anterior Descending: subtotal occlusion, YUMIKO: 1 flow. Thrombus seen. * Mid Right Coronary Artery: mild 40% stenosis, YUMIKO: 3 flow. * Coronary angiography shows right dominance. PCI Status: Urgent PCI Indication: NSTE - ACS Interventional Findings * Procedure detail: We engaged left main artery with XB 3.0 guide catheter. IV heparin was administered to maintain anticoagulation. 0.014 run-through guidewire was used to cross the stenosis and was put in distal vessel. We performed IVUS with MLA of 2.8 mm2. We predilated the stenosis with 2.5 x 20 mm semicompliant balloon. This was followed by placement of 3.0 x 38 mm resolute Chani drug-eluting stent. Repeat IVUS was performed that showed underexpansion of mid segment of the stent. We postdilated the stent with 3.5 x 20 mm NC balloon at high pressure. At this time final angiogram was performed that showed excellent stent expansion, no residual stenosis and YUMIKO-[address] elevation was noted at this time transiently. Small to medium sized septal branch was occluded secondary to plaque shift. Attempt at wiring it was not successful. As patient was not having chest pain and was hemodynamically stable, we decided to treat it medically. Guidewire and guide catheter were removed. Patient left the Players Assistant in a stable condition.. * Proximal Left Anterior Descendin% stenosis treated with a AB TREK 2.50X20 RX BALLOON, KADEEM Swanson CHANI 3.0X38 DOTTIE, and KADEEM HARVEY EUPHORA RX 3.53H84AA BALLOON. 0% residual stenosis, YUMIKO: 3 flow. Conclusions 1. Subtotal thrombotic occlusion of proximal LAD s/p successful revascularization with 1 stent.. 2. Proximal Left Anterior Descending was treated with a Balloon, Drug Eluting Stent, and Balloon. Recommendations * Dual antiplatelet therapy with aspirin and plavix for atleast 1 year. * High intensity statin therapy. * Outpatient cardiology follow-up in 2 weeks. * Transfer to ICU. * Order echocardiogram. Interventional RX Recommendation: PCI w/o planned CABG Diagnostic RX Recommendation: PCI w/o planned CABG Anticoagulation: Heparin Pressures Phase:Rest AO : / ( 0 ) @ 5:17:00 PM 124 / 115 ( 88 ) @ 5:23:00 PM 72 / 55 ( 65 ) @ 5:37:00 PM 81 / 69 ( 73 ) @ 5:37:00 PM Clinical Evaluation EBL: 5mL-10mL Procedural Details Current Diagnosis : NSTEMI. Pre-Procedure Time Out. Identified patient by full name and date of as verbalized by the patient/guarantor. Does the consent match the physician's order: Yes. Accurate & Complete Informed Consent: Yes. Inpatient/Outpatient History & Physical on Chart: N/A. If H&P is completed, is and addenduem needed: N/A; If yes, is the addendum complete: N/A. Visualize and Verify Site with Patient/Guarantor: N/A. Relevant Radiology Images available: N/A. Pre-op teaching completed and patient verbalized understanding. The risks, benefits, and alternatives of sedation and/or procedure were discussed by physician. The patient agrees to continue. Procedure started. [facility] Clinical Fraility Score: 3: Managing Well. Players Assistant Indications: NONSTEMI. Chest Pain Symptom Assessment: Typical Angina Symptoms. Cardiovascular Instability: NO; STABLE. Correct patient, site and procedure confirmed by cath team. Current diagnosis: NSTEMI. PERRLA. Strong, equal hand phytopathology teacher bilaterally. Lungs clear x 5 lobes. IV Site on Arrival: 20 gauge in the right anticubital. IV Fluids: 0.9% NaCl at KVO. 0 mL infused prior to laborer vegetable farm. Pre Procedural Pulses: bilateral posterior tibial was Doppled. Pre Procedural Pulses: bilateral dorsalis pedis was Doppled. Pre Procedural Pulses: bilateral radial was 3+. Oxygen started at 3liters/min via nasal canula. right groin was prepped with chloroprep then draped in the usual sterile fashion. right radial was prepped with chloroprep then draped in the usual sterile fashion. Physician notified. Baseline sample Acquired. HR: 67 BPM. Physician arrived. Patient's family unavailable. Physician scrubbed in. Immediate Pre-Procedure Time Out. Correct Patient: Yes; Correct Procedure: Yes; Correct Site: Yes; Correct Patient Position: Yes; Correct Supplies: Yes; Dried Flammable Prep: Yes; Blood Products Available: N/A;. Patient received heparin bolus, plavix and aspirin in ER; PRESSURE SEALER AND TESTER. Lidocaine 1% infiltrated to the right radial. Admit Source: Emergency department. Arterial access obtained. A 5 macanese TIG catheter in over wire. Multiple views taken of left coronary artery. Catheter removed over the wire. A 5 macanese JR4 catheter in over wire. Multiple views taken of right coronary artery. Catheter removed over the wire. 6 macanese XB 3 guide catheter was inserted over the wire. Inventory: Enodcruzator; Cullen. Guide seated in the LCS. Runthrough guidewire was advanced through the guide catheter to lesion in the prox LAD. Inflation number : 1 A AB TREK 2.50X20 RX BALLOON was prepped and advanced across the Prox LAD , then inflated to 10 ELEAZAR for 0:14 seconds. Inflation number: 2 The AB TREK 2.50X20 RX BALLOON was reinflated across the Prox LAD, to 8 ELEAZAR for 0:10 seconds. Balloon out. IVUS catheter inserted. IVUS run of proximal lad performed. MLA of proximal LAD 2.8 mm squared. IVUS catheter removed. Inflation Number : 3 A KADEEM Swanson CHANI 3.0X38 DOTTIE -Lot Number# [id number] prepped and advanced across the Prox LAD. The stent was deployed at 12 ELEAZAR for 0:22 seconds. EXP 02-05-26. Results checked. Stent balloon out over the wire. ACT drawn. Results 347 seconds. Therapeutic limits - pre-heparin administration 90-150 seconds and monitoring heparin during a vascular procedure >250 seconds. Results checked. IVUS catheter inserted. IVUS run of proximal LAD post stent placement. Inflation number : 4 A MDT NC EUPHORA RX [id number] BALLOON was prepped and advanced across the Prox LAD , then inflated to 20 ELEAZAR for 0:18 seconds. Inflation number: 5 The MDT NC EUPHORA RX 3.52S49UM BALLOON was reinflated across the Prox LAD, to 20 ELEAZAR for 0:13 seconds. Balloon out. Results checked. Runthrough wire out. Results checked. Physician review of films. ACT drawn. Results 296 seconds. Therapeutic limits - pre-heparin administration 90-150 seconds and monitoring heparin during a vascular procedure >250 seconds. Physician scrubbed out. A TR Band was successful obtaining hemostatsis at the Right Radial artery insertion site. TR band placed. Hemostasis obtained. Post Procedure: Pulses reassessed and unchanged. PERRLA. Strong, equal hand phytopathology teacher bilaterally. No VTE prophylaxis required. Medication waste Nitro 49.6 mg. Total IV fluids: 60 mL. Fluoro: 11:06. Contrast type used: Omnipaque 300 mgI/mL, 500 mL bottle. [id number]. Post-op diagnosis: Severe Proximal LAD stenosis; Status post 1 DOTTIE. Complications: None. Estimated blood loss: 5mL-10mL. Responsiveness - Normal response to verbal stimuli; alert and oriented, PERRLA. Airway - Unaffected, no intervention required; spontaneous ventilation. Circulation: W/N/L, pulses unchanged. Nausea/Vomiting: No. Procedure completed. Patient transferred by wheelchair to ICU. Access Site Site: Right Radial artery Sheath Size: 6 Fr Hemostasis Method: TR Band Hemostasis Success: Successful Procedure Medications Start: 5:14 PM Stop: 5:14 PM Medication: Versed Amount: 1 mg Route: I.V. Start: 5:14 PM Stop: 5:14 PM Medication: Fentanyl Amount: 50 mcg Route: I.V. Start: 5:20 PM Stop: 5:20 PM Medication: Nitrogylcerin Amount: 200 mcg Route: I.A. Start: 5:20 PM Stop: 5:20 PM Medication: Versed Amount: 1 mg Route: I.V. Start: 5:22 PM Stop: 5:22 PM Medication: Heparin Amount: 4000 units Route: I.V. Start: 5:22 PM Stop: 5:22 PM Medication: Fentanyl Amount: 25 mcg Route: I.V. Start: 5:29 PM Stop: 5:29 PM Medication: Heparin Amount: 2000 units Route: I.V. Start: 5:30 PM Stop: 5:30 PM Medication: Versed Amount: 1 mg Route: I.V. Start: 5:36 PM Stop: 5:36 PM Medication: Versed 1 mg and Fentanyl 25 mcg Amount: 1 Route: I.V. Start: 5:46 PM Stop: 5:46 PM Medication: Nitrogylcerin Amount: 200 mcg Route: I.C. I, the attending physician, have reviewed and verified all procedure medications. Yes, all medications given per verbal order History/Risk Factors Hypertension: Yes Dyslipidemia: Yes Peripheral Arterial Disease (PAD): No Myocardial Infarction (ID): No Obesity: No Renal Disease: No Prior Interventions PCI: No CABG: No Valve Surgery: No Report Signatures Finalized by Rocael Hall MD on 10/09/2023 03:01 PM
[2023-10-05] MEDS: aspirin 81 mg Chew Tablet 324 MG PO (16:54)
[2023-10-05] MEDS: heparin 5,000 unit/mL INJ 1 mL 4000 UNIT IVP (16:55)
[2023-10-05] MEDS: clopidogrel 300 mg Tablet 600 MG PO (16:55)
--- NOTE | 2023-10-05 17:07 | P.HP_ITS ---
Providers/Chief Complaint 2 Admitting Physician: Rocael Hall MD/ Interventional cardioloy Primary Care Provider: Rickey Burt DO Chief Complaint: CP, sob History of Present Illness Malachi Larry is a 73 year old male with past medical history of dyslipidemia, hypothyroidism, hypertension who presented to hospital with 2 to 3 weeks of on and off chest pain. Initially was exertional. Since yesterday it has become quite significant. It was radiating to the jaw and to the back of the neck. Today it became severe and he presented to the hospital. His EKG is showing dynamic changes. Deep T wave inversions in anterior and anterolateral leads. His initial troponin is 157. Review of Systems 2 Const: Denies: fever(s), chills, fatigue, malaise or diaphoresis Eyes: Denies: change in vision ENMT: Denies: tinnitus or epistaxis Card: Reports: chest pain; Denies: palpitations or syncope Resp: Reports: dyspnea; Denies: productive cough or non-productive cough : Denies: dysuria Skin/Breast: Denies: rash or pruritus Neuro: Denies: headache(s) or dizziness Psych: Denies: anxiety Medications/Allergies Home Medications Medication Instructions Recorded Confirmed Last Taken Type levothyroxine 112 mcg capsule 112 mcg PO DAILY 09/08/21 10/05/23 10/05/23 History valsartan 160 1 tab PO DAILY 09/08/21 10/05/23 10/05/23 History mg-hydrochlorothiazide 12.5 mg tablet atorvastatin 40 mg tablet 40 mg PO QPM 04/28/23 10/05/23 10/04/23 History budesonide-formoterol HFA 80 2 inh inhalation BID #10.2 grams 08/12/23 10/05/23 10/05/23 Rx mcg-4.5 mcg/actuation aerosol inhaler (Symbicort) xakrdinsrude-drx-aaffi acid-vit 1 tab PO DAILY 10/05/23 10/05/23 10/05/23 History K-lycop 400 mcg-20 mcg-370 mcg tablet (Men's 50 Plus Multivitamin) Allergies Allergy/AdvReac Type Severity Reaction Status Date / Time No Known Allergies Allergy Verified 10/05/23 15:49 PFSH Acute 2 PFSH: Medical History HTN (hypertension) Hypothyroidism Inguinal hernia History of colon polyps Erectile dysfunction Low testosterone in male Surgical History H/O elbow surgery Hx of arthroscopy of left knee H/O discectomy History of colonoscopy with polypectomy Family History Mother No problems noted. Father Cancer lung Social History Smoking and tobacco/nicotine status: never used tobacco/nicotine Alcohol intake: never Marital status: Vitals/I&O/Wt Last Vital Signs Temp 98.2 F 10/05/23 12:04 Pulse 66 10/05/23 17:00 Resp 21 H 10/05/23 17:00 BP 144/97 10/05/23 17:00 Pulse Ox 96 10/05/23 17:00 O2 Del Method Room Air 10/05/23 17:00 Weight last 48 hrs Weight 230 lb Physical Exam 2 Narrative: GENERAL: Patient is alert, awake and oriented x3. [] NECK: No jugular vein distension. [] HEENT: No cyanosis. No icterus. No pallor. [] HEART: Regular S1 and S2. No murmur, rub or gallop. [] LUNGS: Clear to auscultate bilaterally. [] CENTRAL NERVOUS SYSTEM: Grossly nonfocal. [] EXTREMITIES: Lower extremities with 1+ edema bilaterally. Data 10/05/23 14:25 10/05/23 14:25 A&P Assessment and plan (1) Non-ST elevated myocardial infarction (non-STEMI): (2) Benign essential HTN: (3) Hypothyroidism: Qualifiers: Hypothyroidism type: other Qualified Code(s): E03.8 - Other specified hypothyroidism Plan Patient has presented with high risk NSTEMI with initial troponin over 150 and dynamic EKG changes with T wave inversions in anterior/anterolateral leads. Plan for urgent coronary angiography with possible PCI. Risks and benefits of the procedure have been discussed. Patient understands these and wants to proceed. We will load with aspirin, Plavix. Heparin bolus given. Recent echo had shown normal LV systolic function. We will obtain limited echocardiogram to assess LV function Attestations 2 Medical Necessity Statement*: Care expected to cross 2 midnights. Patient has presented with high risk NSTEMI and will be taken to pie bakery laborer directly from the ER for an urgent cardiac catheterization with possible PCI Coding Level of Care Code Acute Code for Chg Fwd Diagnoses Non-ST elevated myocardial infarction (non-STEMI) I21.4 Benign essential HTN I10 Other specified hypothyroidism E03.8 Hypothyroidism type: other
[2023-10-05 17:10] LABS: Troponin 5 2HR 187.3 ng/L (0-15); Troponin 5 2HR Delta 30.3 ABS# (0-10)
[2023-10-05] MEDS: sodium chloride 0.9% 1,000 ML 100 ML IV (19:00)
--- NOTE | 2023-10-05 19:22 | USCV_ITS ---
Malachi Larry Age: 73 Gender: M : 1950 Exam Date: 10/05/2023 21:36 Ordering Phys: Rocael Hall M.D ([email or web address]) Technologist: BERTA Exam Location: [facility] [place] Indication: post WV, s/p cardiac catheterization, one stent. History of HTN, HL. BP: 144 / 97 HR: 66 Rhythm: Sinus Technical Quality: Adequate MEASUREMENTS (Male / Female) Normal Values 2D ECHO LV Diastolic Diameter PLAX 5.1 cm 4.2 - 5.9 / 3.9 - 5.3 cm LV Systolic Diameter PLAX 3.3 cm IVS Diastolic Thickness 1.4 cm 0.6 - 1.0 / 0.6 - 0.9 cm IVS Systolic Thickness 1.7 cm LVPW Diastolic Thickness 1.1 cm 0.6 - 1.0 / 0.6 - 0.9 cm LVPW Systolic Thickness 1.0 cm LVOT Diameter 2.0 cm LV Ejection Fraction 2D Teich 64.6 % LV Ejection Fraction MOD 2C 54.7 % LV Ejection Fraction 2C AL 54.1 % LA Diameter 4.9 cm LA Width 4.3 cm LA Height 5.1 cm RA Width 3.7 cm RA Height 4.1 cm Aorta at Sinotubular Diameter 3.4 cm IVC Diameter 1.7 cm M-MODE Aortic Annulus Diameter 3.8 cm LA Ao Ratio MM 1.3 MV E Point Septal Separation 0.4 cm DOPPLER AV Peak Velocity 108.0 cm/s LVOT Peak Velocity 86.0 cm/s AV Area Cont Eq vti 2.9 cm squared AV Area Cont Eq pk 2.6 cm squared MV Peak Velocity 99.0 cm/s MV Area PHT 3.9 cm squared Mitral E to A Ratio 0.7 MV E' Velocity 30.5 cm/s Mitral E to MV E' Ratio 8.9 Mitral E to LV E' Lateral Ratio 13.2 Mitral E to LV E' Septal Ratio 6.8 TR Peak Velocity 302.0 cm/s TR Peak Gradient 36.5 mmHg TV Peak E Velocity 36.0 cm/s Right Atrial Pressure 10.0 mmHg Pulmonary Artery Systolic Pressu 46.5 mmHg PV Peak Velocity 92.0 cm/s RV Acceleration Time 0.1 s RV Ejection Time 0.4 s RV AcT/ET 0.2 FINDINGS Left Ventricle Left ventricle is normal in size. LV systolic function is moderately reduced with EF of 35 to 40%. Moderate to severe hypokinesis of apical, apical inferior barry. Severe hypokinesis of anterior wall. Grade 1 diastolic dysfunction. Right Ventricle Normal in size and function Right Atrium Normal in size Left Atrium Normal in size Mitral Valve Structurally normal mitral valve. Trace mitral regurgitation. Aortic Valve Structurally normal aortic valve. Trace aortic regurgitation. No significant stenosis. Tricuspid Valve Mild tricuspid regurgitation. RVSP is 45 to 50 mmHg. Moderate pulmonary hypertension. Pulmonic Valve Mild pulmonic regurgitation. Pericardium Normal Aorta Normal in size IVC Appears to be normal CONCLUSIONS LV systolic function is moderately reduced with EF of 35 to 40%. Moderate to severe hypokinesis of apical, apical inferior barry. Severe hypokinesis of anterior wall. Grade 1 diastolic dysfunction. Trace mitral regurgitation Mild tricuspid regurgitation Moderate pulmonary hypertension Mild pulmonic regurgitation Compared to prior echocardiogram from 09/23/2023, patient has significantly reduced LV systolic function. Rocael Hall MD (Electronically Signed) Final Date: 06 October 2023 12:33 Amended: 06 October 2023 12:51 C
--- NOTE | 2023-10-05 19:37 | ECG_ITS ---
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 Measurements Intervals [place] Rate: 60 P: 44 IA: 133 QRS: -68 QRSD: 121 T: 152 QT: 460 QTc: 460 Interpretive Statements SINUS RHYTHM WITH OCCASIONAL SUPRAVENTRICULAR PREMATURE COMPLEXES LEFT ANTERIOR FASCICULAR BLOCK [QRS AXIS <= -45, QR IN I, RS IN II] SEPTAL MYOCARDIAL INFARCTION [40+ ms Q WAVE IN V1/V2], OF INDETERMINATE AGE MODERATE T-WAVE ABNORMALITY, CONSIDER ANTEROLATERAL ISCHEMIA [-0.1+ mV T WAVE IN V3-V6] Compared to ECG 10/05/2023 16:28:39 Myocardial infarct finding now present T-wave abnormality still present Possible ischemia still present Electronically Signed On 10-06-2023 13:06:30 PREVENTION SPECIALIST by Rocael Hall M.D. [id number]
[2023-10-05] MEDS: atorvastatin 40 mg Tablet PO (19:56)
[2023-10-05] MEDS: metoprolol tartrate 25 mg Tablet PO (19:56)
--- NOTE | 2023-10-05 20:11 | ECG_ITS ---
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 Measurements Intervals [place] Rate: 61 P: 59 UT: 162 QRS: -77 QRSD: 120 T: 166 QT: 459 QTc: 463 Interpretive Statements SINUS RHYTHM POSSIBLE RIGHT VENTRICULAR CONDUCTION DELAY [RSR (QR) IN V1/V2] LEFT ANTERIOR FASCICULAR BLOCK [QRS AXIS <= -45, QR IN I, RS IN II] SEPTAL MYOCARDIAL INFARCTION [40+ ms Q WAVE IN V1/V2], OF INDETERMINATE AGE MODERATE T-WAVE ABNORMALITY, CONSIDER ANTEROLATERAL ISCHEMIA [-0.1+ mV T WAVE IN V3-V6] Compared to ECG 10/05/2023 19:42:06 No significant changes Electronically Signed On 10-06-2023 13:06:17 HEMOTHERAPIST by Rocael Hall M.D. [id number]
[2023-10-05] MEDS: albuterol 2.5 mg/3 mL Neb INHALATION (20:27)
[2023-10-05] MEDS: budesonide 0.5 mg/2 mL Neb INHALATION (20:27)
[2023-10-05] MEDS: temazepam 15 mg Capsule PO (20:58)
[2023-10-05 21:00] LABS: Troponin 5 6HR 589.6 ng/L (0-15); Troponin 5 6HR Delta 432.6 ng/L (0-12)
--- NOTE | 2023-10-05 23:10 | PC.NURSE ---
TR Band: TR Band removed @approximately 2200. See Post Cardiac Cath Flow Sheet for sire observations.
[2023-10-06] VITALS (14 sets, daily range): BP systolic 110–128; BP diastolic 64–86; PULSE 50–66; RESP 14–18; TEMP 36.8; O2SAT 92–96
[2023-10-06] MEDS: acetaminophen 325 mg Tablet 650 MG PO (03:55)
[2023-10-06] MEDS: sodium chloride 0.9% 1,000 ML 100 ML IV (03:57)
[2023-10-06 06:10] LABS: Basophils # 0.1 10^3/uL (0.0-0.1); Basophils % 0.4 %; Eosinophils # 0.1 10^3/uL (0.0-0.8); Eosinophils % 0.7 %; Hematocrit 45.1 % (37-53); Lymphocytes # 1.9 10^3/uL (0.8-4.8); Lymphocytes % 15.2 %; Mean Corpuscular HGB Conc 32.8 g/dL (30-55); Mean Corpuscular Hemoglobin 27.9 pg (27-33); Mean Corpuscular Volume 84.9 fl (82-101); Mean Platelet Volume 8.4 fL (7.4-10.4); Monocytes % 8.2 %; Neutrophils % 75.1 %; Nucleated Red Blood Cells % 0 %; Platelet Count 217 10^3/cmm (157-399); Red Blood Count 5.31 10^6/uL (3.85-5.65); Red Cell Distribution Width 13.2 % (12.1-15.1); White Blood Count 12.27 10^3/uL (3.29-11.43)
[2023-10-06 06:33] LABS: Anion Gap 13.2 (5-19); Blood Urea Nitrogen 12 mg/dL (8-23); Calcium 9.2 mg/dL (8.5-10.5); Carbon Dioxide 28 mmol/L (22-29); Chloride 102 mmol/L (98-107); Glucose 114 mg/dL (65-115); Osmolality Calculated 289 mOsm/kg (285-295); Potassium 4.2 mmol/L (3.5-5.1); Sodium 139 mmol/L (136-145)
[2023-10-06] MEDS: alum-mag-hydroxide-sime 30 mL UDC PO (08:53)
--- NOTE | 2023-10-06 09:10 | ECG_ITS ---
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 Measurements Intervals [place] Rate: 61 P: 128 ND: 164 QRS: 246 QRSD: 118 T: 36 QT: 456 QTc: 461 Interpretive Statements SINUS RHYTHM ARM LEADS REVERSED [INVERTED P AND QRS IN I] Compared to ECG 10/05/2023 20:41:21 Left anterior fascicular block no longer present Myocardial infarct finding no longer present T-wave abnormality no longer present Possible ischemia no longer present Electronically Signed On 10-06-2023 13:04:37 INSERTER by Rocael Hall M.D. [id number]
--- NOTE | 2023-10-06 09:28 | PM.DCS ---
Discharge Providers Date of Admission: 10/05/23 17:50 Date of Discharge: October 06, 2023 Attending Provider at Admission: Rocael Hall M.D Attending Provider at Discharge: Rocael Hall M.D Primary Care Provider: Rickey Burt DO Diagnoses at Discharge Discharge Diagnosis (1) Non-ST elevated myocardial infarction (non-STEMI): Status: Inactive (2) Benign essential HTN: Status: Acute (3) Hypothyroidism: Status: Acute Qualifiers: Hypothyroidism type: other Qualified Code(s): E03.8 - Other specified hypothyroidism (4) HFrEF (heart failure with reduced ejection fraction): Status: Acute Reason for Visit Reason for Visit: Chest pain, shortness of breath Brief History: 73 year old male with past medical history of dyslipidemia, hypothyroidism, hypertension who presented to hospital with 2 to 3 weeks of on and off chest pain. Initially was exertional. Since yesterday it has become quite significant. It was radiating to the jaw and to the back of the neck. Today it became severe and he presented to the hospital. His EKG is showing dynamic changes. Deep T wave inversions in anterior and anterolateral leads. His initial troponin is 157. Hospital Course Hospital Course At the end coronary angiography showed subtotal occlusion with thrombus in proximal LAD. He underwent successful revascularization with 1 stent. There was a medium sized septal branch that got occluded with stent expansion and LAD. He did not have chest discomfort. However ST elevation was noted in septal leads. He was transferred to ICU where he stayed stable overnight. Echo showed significantly decreased LV systolic function compared to before with a EF of 35 to 40%. Patient was recommended to stay for 1 more day for further observation of rhythm however as he was asymptomatic, he wanted to go home. Given his stability, after detailed discussion patient was discharged home on dual antiplatelet therapy. He will need follow up echocardiogram in 2-3 months for EF assessment. Physical Exam Narrative: GENERAL: Patient is alert, awake and oriented x3. [] NECK: No jugular vein distension. [] HEENT: No cyanosis. No icterus. No pallor. [] HEART: Regular S1 and S2. No murmur, rub or gallop. [] LUNGS: Clear to auscultate bilaterally. [] CENTRAL NERVOUS SYSTEM: Grossly nonfocal. [] EXTREMITIES: Lower extremities with 1+ edema bilaterally. 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 echo complete* [id number] Routine Ultrasound 10/05/23 19:22 Taken Laboratory Results WBC 12.27 10^3/uL (3.29-11.43) H 10/06/23 05:19 RBC 5.31 10^6/uL (3.85-5.65) 10/06/23 05:19 Hgb 14.80 g/dL (11.27-16.99) 10/06/23 05:19 Hct 45.1 % (37-53) 10/06/23 05:19 MCV 84.9 fl (82-101) 10/06/23 05:19 MCH 27.9 pg (27-33) 10/06/23 05:19 MCHC 32.8 g/dL (30-55) 10/06/23 05:19 RDW 13.2 % (12.1-15.1) 10/06/23 05:19 Plt Count 217 10^3/cmm (157-399) 10/06/23 05:19 MPV 8.4 fL (7.4-10.4) 10/06/23 05:19 Neut % (Auto) 75.1 % 10/06/23 05:19 Lymph % (Auto) 15.2 % 10/06/23 05:19 [place] % (Auto) 8.2 % 10/06/23 05:19 Eos % (Auto) 0.7 % 10/06/23 05:19 Baso % (Auto) 0.4 % 10/06/23 05:19 Neut # (Auto) 9.20 10^3/uL (1.8-7.7) H 10/06/23 05:19 Lymph # (Auto) 1.9 10^3/uL (0.8-4.8) 10/06/23 05:19 [place] # (Auto) 1.0 10^3/uL (0.2-0.9) H 10/06/23 05:19 Eos # (Auto) 0.1 10^3/uL (0.0-0.8) 10/06/23 05:19 Baso # (Auto) 0.1 10^3/uL (0.0-0.1) 10/06/23 05:19 Nucleated RBC % (auto) 0 % 10/06/23 05:19 Nucleated RBCs # 0.0 /100WBC 10/06/23 05:19 PT 12.90 SECONDS (12.1-14.9) 10/05/23 14:25 INR 0.94 (0.8-1.2) 10/05/23 14:25 APTT 28.2 SECONDS (23.9-36.7) 10/05/23 14:25 Sodium 139 mmol/L (136-145) 10/06/23 05:19 Potassium 4.2 mmol/L (3.5-5.1) 10/06/23 05:19 Chloride 102 mmol/L (98-107) 10/06/23 05:19 Carbon Dioxide 28 mmol/L (22-29) 10/06/23 05:19 Anion Gap 13.2 (5-19) 10/06/23 05:19 BUN 12 mg/dL (8-23) 10/06/23 05:19 Creatinine 0.5 mg/dL (0.7-1.2) L 10/06/23 05:19 GFR Calculation Not Reportable 10/06/23 05:19 Glucose 114 mg/dL (65-115) 10/06/23 05:19 Calculated Osmolality 289 mOsm/kg (285-295) 10/06/23 05:19 Calcium 9.2 mg/dL (8.5-10.5) 10/06/23 05:19 Magnesium 2.3 mg/dL (1.7-2.3) 10/05/23 14:25 Total Bilirubin 0.5 mg/dL (0.15-1.2) 10/05/23 14:25 AST 50 U/L (0-40) H 10/05/23 14:25 ALT 61 U/L (0-41) H 10/05/23 14:25 Alkaline Phosphatase 113 U/L (40-130) 10/05/23 14:25 Troponin T Baseline 157 ng/L (0-15) H* 10/05/23 14:25 Troponin T 120 Minute 187.3 ng/L (0-15) H 10/05/23 16:27 Delta Troponin T 30.3 ABS# (0-10) H* 10/05/23 16:27 Troponin T Hi Sens 6Hr 589.6 ng/L (0-15) H 10/05/23 20:26 Troponin T Hi Sens 6Hr Delta 432.6 ng/L (0-12) H* 10/05/23 20:26 NT-Pro-B Natriuret Pep 549 pg/mL (0-125) H 10/05/23 14:25 Total Protein 7.9 g/dL (6.6-8.7) 10/05/23 14:25 Albumin 4.8 g/dL (3.5-5.2) 10/05/23 14:25 Globulin 3.1 g/dL (1.3-4.6) 10/05/23 14:25 Vitals Last Vital Signs Temp 98.2 F 10/06/23 08:00 Pulse 66 10/06/23 08:00 Resp 16 10/06/23 08:00 BP 125/85 10/06/23 08:00 Pulse Ox 96 10/06/23 08:00 O2 Del Method Room Air 10/06/23 08:00 Discharge Plan Discharge Patient Disposition: Home Condition: Stable Prescriptions: New aspirin 81 mg Tablet,Delayed Release (Dr/Ec) 81 mg PO DAILY Qty: 90 3RF clopidogrel 75 mg Tablet 75 mg PO DAILY Qty: 90 3RF metoprolol tartrate 50 mg Tablet 12.5 mg PO BID Qty: 60 2RF nitroglycerin 0.4 mg Tablet, Sublingual 0.4 mg sublingual Q5M PRN (Reason: Chest Pain) Qty: 30 1RF losartan 100 mg tablet 100 mg PO DAILY Qty: 90 3RF Continued levothyroxine 112 mcg capsule 112 mcg PO DAILY atorvastatin 40 mg tablet 40 mg PO QPM budesonide-formoterol [Symbicort] 80-4.5 mcg/actuation HFA aerosol inhaler 2 inh inhalation BID Qty: 10.2 6RF Men's 50 Plus Multivitamin 400-20-370 mcg Tablet 1 tab PO DAILY Discontinued valsartan-hydrochlorothiazide 160-12.5 mg tablet 1 tab PO DAILY Discharge Orders: Discharge Order (Routine); Ordered 10/06/23 Ordered By: Rocael Hall Referrals: [place], [facility] OFFICER [Nurse Practitioner] - 10/17/23 9:30 am Rickey Burt DO [Primary Care Provider] - 10/10/23 12:40 pm (will need lab , BMP for post angiogram and wrist wound check after angiogram and follow up from Heart attack /chest pain ) Discharge Diet: Cardiac Discharge Activity: Increase activity as tolerated Patient Instructions: Metoprolol (By mouth) (Lopressor, Toprol XL), Nitroglycerin (By mouth), Aspirin (By mouth) (Edgardo Extra Strength, Edgardo Aspirin Children's,..., Losartan (By mouth) (Cozaar), Clopidogrel (By mouth) (Plavix), Heart Attack (DC), Heart Healthy Diet (DC), Chest Pain Stoplight, Opioid Safety, Post Angiogram Home Care Instructions, Post Heart Attack Stoplight Discharge Attestations Time Spent in Discharge Care*: greater than 30 min Quality Metrics Clinical Quality Measures [ Acute Myocardial Infaction { Clinical Trial Participant: No; Contraindication to aspirin: None; Aspirin prescribed; Contraindication to statin: None; Statin prescribed; Contraindication to PCI: None; PCI performed;}] Coding Level of Care Code Acute Code for Chg Fwd Diagnoses Non-ST elevated myocardial infarction (non-STEMI) I21.4 Benign essential HTN I10 Other specified hypothyroidism E03.8 Hypothyroidism type: other HFrEF (heart failure with reduced ejection fraction) I50.20
[2023-10-06] MEDS: aspirin 81 mg EC Tablet PO (10:15)
[2023-10-06] MEDS: clopidogrel 75 mg Tablet PO (10:15)
[2023-10-06] MEDS: levothyroxine 112 mcg Tablet PO (10:15)
[2023-10-06] MEDS: metoprolol tartrate 25 mg Tablet 12.5 MG PO (10:43)
--- NOTE | 2023-10-06 11:09 | PC.NURSE ---
Discharge instructions provided and discussed with pt. New medications, Nitro plavix, aspirin, Metoprolol and losartaan care notes proved and discussed. Heart attack stop light, post PCI, heart healthy diet, and post heart attack notes provided and discussed. All questions answered. Pt to front entrance via W/C.
== END 2023-10-06 11:00 | disposition home or self-care (01) | DRG 322 ==
LOC: ER 15:12 → CCL 16:49 → ICU 17:51
PROVIDERS: Nurse Practitioner Family; Admitting Provider Internal Medicine; Emergency Provider Emergency Medicine; PCP Electrodiagnostic Medicine; Visit Provider Internal Medicine
PROC: 027034Z Dilation of Coronary Artery, One Artery with Drug-eluting Intraluminal Device, Percutaneous Approach (ICD-10-PCS; principal; 2023-10-05 17:05)
PROC: 027034Z Dilation of Coronary Artery, One Artery with Drug-eluting Intraluminal Device, Percutaneous Approach (ICD-10-PCS; 2023-10-05 17:05)
DX: I21.4 Non-ST elevation (NSTEMI) myocardial infarction (principal); I50.20 Unspecified systolic (congestive) heart failure; E78.5 Hyperlipidemia, unspecified; E03.9 Hypothyroidism, unspecified; I11.0 Hypertensive heart disease with heart failure; N52.9 Male erectile dysfunction, unspecified; I25.10 Atherosclerotic heart disease of native coronary artery without angina pectoris; Z86.010 Personal history of colon polyps
CPT/HCPCS: 36415; 71045; 80048; 80053; 83735; 83880; 84484; 85025; 85347; 85610; 85730; 92978; 93005; 93306; 93454; 94640; 96367; 96374; 96376; 99152; 99153; 99285; C1725; C1753; C1769; C1874; C1887; C1894; C9600; J1644; J2250; J3010; J3490; J7030; J7613; J7626; Q9967

== ENCOUNTER → 2023-10-17 09:03 | Outpatient (BNVA) | payer MEDICARE, SELFPAY | PROVIDERS: PCP Electrodiagnostic Medicine; Visit Provider Nurse Practitioner Family | DX: I25.10 Atherosclerotic heart disease of native coronary artery without angina pectoris (principal); I10 Essential (primary) hypertension | CPT/HCPCS: 36415; 80048; 99214 ==

== ENCOUNTER → 2023-12-12 11:55 | Outpatient (BNVA) | payer MEDICARE, SELFPAY | PROVIDERS: PCP Electrodiagnostic Medicine; Visit Provider Internal Medicine Cardiovascular Disease | DX: I21.4 Non-ST elevation (NSTEMI) myocardial infarction (principal); I25.10 Atherosclerotic heart disease of native coronary artery without angina pectoris; E78.5 Hyperlipidemia, unspecified; I10 Essential (primary) hypertension; I25.5 Ischemic cardiomyopathy; R06.09 Other forms of dyspnea | CPT/HCPCS: 83880; 99214 ==

== ENCOUNTER 2023-12-16 12:54 | Outpatient (CLI) | payer MEDICARE, SELFPAY ==
--- NOTE | 2023-12-16 13:15 | USCV_ITS ---
Malachi Larry Age: 73 Gender: M : 1950 Exam Date: 12/16/2023 13:40 Ordering Phys: Larry Crowley MD ([email or web address]) Technologist: CT Exam Location: [facility] [place] Indication: mi BP: 106 / 78 HR: Rhythm: Sinus Technical Quality: Adequate MEASUREMENTS (Male / Female) Normal Values 2D ECHO LVOT Diameter 2.3 cm LV Ejection Fraction MOD 2C 51.2 % LV Ejection Fraction 2C AL 51.5 % LA Diameter 4.1 cm RA Systolic Volume 4C AL 45.5 ml RA Systolic Volume 4C MOD 45.9 ml Aorta at Sinotubular Diameter 2.6 cm IVC Diameter 1.8 cm M-MODE LA Ao Ratio MM 1.6 AV Cusp Separation MM 2.3 cm FINDINGS Left Ventricle Normal LV size with borderline low ejection fraction of 51%. Relative hypokinesia of the septum. Right Ventricle The right ventricle is normal in size and function. Right Atrium Upper limit of normal size Left Atrium The interatrial septum appears to be bulging to the right. The left atrium is upper limit of normal size Mitral Valve No gross abnormalities noted Aortic Valve No gross abnormalities noted Tricuspid Valve No gross abnormalities noted Pulmonic Valve No gross abnormalities noted Pericardium Normal pericardium without effusion. Aorta Normal ascending aorta dimension. IVC Normal inferior vena cava. CONCLUSIONS Normal LV size with borderline low ejection fraction of 51%. Relative hypokinesia of the septum. Both atria, upper limit of normal size. The interatrial septum appears to be bulging to the right. There is no pericardial effusion. There are no intracardiac masses. Compared to the study from 10/05/2023, there is significant improvement of the LV ejection fraction. Dr Larry Crowley MD FACC (Electronically Signed) Final Date: 16 December 2023 20:43 S
== END 2023-12-16 12:55 | disposition home or self-care (01) ==
LOC: RAD 12:54
PROVIDERS: PCP Electrodiagnostic Medicine; Visit Provider Internal Medicine Cardiovascular Disease
DX: I42.9 Cardiomyopathy, unspecified (principal); I25.2 Old myocardial infarction
CPT/HCPCS: 93308

== ENCOUNTER → 2024-01-06 08:04 | Outpatient (BNVA) | payer MEDICARE, SELFPAY | PROVIDERS: PCP Electrodiagnostic Medicine; Visit Provider Internal Medicine Pulmonary Disease | DX: J82.83 Eosinophilic asthma (principal); R06.09 Other forms of dyspnea; R09.82 Postnasal drip | CPT/HCPCS: 99214 ==

== ENCOUNTER → 2024-05-01 13:52 | Outpatient (BNVA) | payer MEDICARE, SELFPAY | PROVIDERS: PCP Electrodiagnostic Medicine; Visit Provider Internal Medicine Cardiovascular Disease | DX: I25.10 Atherosclerotic heart disease of native coronary artery without angina pectoris (principal); I10 Essential (primary) hypertension; E78.5 Hyperlipidemia, unspecified; I25.5 Ischemic cardiomyopathy | CPT/HCPCS: 99214 ==

== ENCOUNTER → 2024-07-23 14:18 | Outpatient (BNVA) | payer MEDICARE, SELFPAY | PROVIDERS: PCP Electrodiagnostic Medicine; Visit Provider Podiatrist Foot & Ankle Surgery | DX: M79.671 Pain in right foot (principal); M67.471 Ganglion, right ankle and foot | CPT/HCPCS: 73630; 99213 ==

== ENCOUNTER → 2024-11-13 08:57 | Outpatient (BNVA) | payer MEDICARE, SELFPAY | PROVIDERS: PCP Electrodiagnostic Medicine; Visit Provider Nurse Practitioner Family | DX: I11.0 Hypertensive heart disease with heart failure (principal); I50.20 Unspecified systolic (congestive) heart failure; I25.10 Atherosclerotic heart disease of native coronary artery without angina pectoris; E78.5 Hyperlipidemia, unspecified; I25.2 Old myocardial infarction; R68.89 Other general symptoms and signs | CPT/HCPCS: 99214 ==

== ENCOUNTER 2025-06-12 09:51 | Outpatient (CLI) | payer MEDICARE, SELFPAY | END 2025-06-12 09:52 | disposition home or self-care (01) | LOC: RAD 09:54 | PROVIDERS: PCP Electrodiagnostic Medicine; Visit Provider Nurse Practitioner Family | DX: I50.20 Unspecified systolic (congestive) heart failure (principal); I25.5 Ischemic cardiomyopathy | CPT/HCPCS: 93306 ==

== ENCOUNTER → 2025-08-07 10:54 | Outpatient (BNVA) | payer MEDICARE, SELFPAY | PROVIDERS: PCP Electrodiagnostic Medicine; Visit Provider Internal Medicine Cardiovascular Disease | DX: I11.0 Hypertensive heart disease with heart failure (principal); I50.30 Unspecified diastolic (congestive) heart failure; I25.118 Atherosclerotic heart disease of native coronary artery with other forms of angina pectoris; E78.2 Mixed hyperlipidemia; E03.9 Hypothyroidism, unspecified; Z79.82 Long term (current) use of aspirin; I25.2 Old myocardial infarction; R07.9 Chest pain, unspecified | CPT/HCPCS: 93005; 99214 ==

== ENCOUNTER 2025-09-18 09:15 | Outpatient (CLI) | payer MEDICARE, SELFPAY ==
[2025-09-18 09:34] VITALS: BMI 27.1
--- NOTE | 2025-09-18 09:35 | NMCV_ITS ---
NM herrera perf SPECT r/s* [id number] Malachi Larry Age: 75 Gender: M : 1950 Exam Date: 09/18/2025 10:20 Ordering Phys: Larry Crowley MD ([email or web address]) Technologist: FIFI Castillo Exam Location: [facility] Indications: cp STRESS TEST Please see separate stress test report in [facility] for full findings IMAGE PROTOCOL Rest/Stress 1 Exercise Day Radiopharmaceutical Dose (mCi) Administration Site Administered by Rest: Tc-99m 10.7 IV FIFI Castillo Sestamibi Stress:Tc-99m 33 IV FIFI eLe Sestamidafne Rest: 18-Sep-2025 60 Discovery 630 Stress: 18-Sep-2025 15 Discovery 630 Radiopharmaceutical was injected at 88 % maximum heart rate. Images obtained in supine and prone position. SPECT RESULTS Technical Quality: Good Raw Data Analysis: Normal Image Corrections: No attenuation or motion correction applied Summed Stress Score: 2 Summed Rest Score: 1 Summed Difference Score: 2 PERFUSION FINDINGS Large to moderate reversibility area of fixed perfusion defect noted in basal to distal inferior wall on both stress test rest images surrounded by small area of moderate to severe reversibility. FUNCTIONAL RESULTS (calculated via Gated SPECT) Stress Image LV EF (%): 58 Stress EDV (mL):138 TID: 0.76 Stress ESV (mL):58 FUNCTIONAL FINDINGS: Basal to distal inferior wall severe hypokinesis IMPRESSIONS Large area of old myocardial infarction versus scarring surrounded by small area of moderate jurgen-infarct ischemia noted in basal to distal inferior wall suggestive of lesion in RCA territory. Zahra Payne MD (Electronically Signed) Final Date: 18 September 2025 12:42 S
--- NOTE | 2025-09-18 09:35 | ECG_ITS ---
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 Baseline heart rate was 52 beats per minute. Baseline blood pressure was 146/88 millimeters of mercury. Target heart rate was 146 beats per minute. Maximum heart rate achieved was 139, which was 95 % of the target heart rate. Maximum blood pressure was 177/100 millimeters of mercury. Total exercise time was 10 minutes 28 seconds. Maximum METs achieved was 13.5, maximum VO2 was 47.3. The reason for ending the test was maximum effort achieved. The patient complained of shortness of breath during the stress test, which then resolved at the end of the test. ELECTROCARDIOGRAM: BASELINE: Showed sinus bradycardia, left axis, interventricular conduction delay otherwise no significant ST-T changes at the baseline noted. EXERCISE: At the peak exercise level, no significant ST-T changes suggestive of ischemia noted. RECOVERY: During the recovery period, heart rate dropped appropriately. No significant ST-T changes in the recovery suggestive of ischemia noted. CONCLUSION: 1. Exercise capacity good. 2. Heart rate response was appropriate. 3. Blood pressure response was hypertensive 4. Symptoms not suggestive of ischemia. 5. Electrocardiogram portion of the stress test was not suggestive of ischemia. 6. Nuclear scan will be documented separately. Electronically Signed On 10-03-2025 18:33:37 MANAGER TRACK by ARLYN MEMBRENO [email or web address] [id number]
[2025-09-18 11:10] VITALS: BP 158/94; PULSE 75
== END 2025-09-18 09:16 | disposition home or self-care (01) ==
LOC: CDL 09:17
PROVIDERS: PCP Electrodiagnostic Medicine; Visit Provider Internal Medicine Cardiovascular Disease
DX: R07.9 Chest pain, unspecified (principal); R93.1 Abnormal findings on diagnostic imaging of heart and coronary circulation
CPT/HCPCS: 36415; 78452; 93017; A9500